=== PATIENT | male | born 1995 | race Caucasian/White ===

== ENCOUNTER 2024-10-02 15:07 | Emergency (ER) | payer MEDICAID ==
[~2024-10-02] VITALS: Ht 165.1 cm; Wt 109.0 kg
[2024-10-02 15:08] VITALS: O2SAT 96
[2024-10-02 15:34] VITALS: BP 176/97; PULSE 98; RESP 20; TEMP 36.8; O2SAT 95
[2024-10-02] MEDS ORDERED: BO1 TP (17:02)
== END 2024-10-02 17:31 | disposition home or self-care (01) ==
LOC: ER 15:07
DX: S91.201A Unspecified open wound of right great toe with damage to nail, initial encounter (principal); W22.8XXA Striking against or struck by other objects, initial encounter; Y93.89 Activity, other specified; Y92.89 Other specified places as the place of occurrence of the external cause; Y99.8 Other external cause status
CPT/HCPCS: 99282